=== PATIENT | male | born 1990 | race American Indian/Alaskan Native ===

== ENCOUNTER 2020-10-21 14:17 | Emergency (ER) | payer SELFPAY ==
[2020-10-21 14:59] VITALS: BP 128/80
[2020-10-21] MEDS ORDERED: SODIUM CHLORIDE 0.9% 1000 ML 1,000 ML IV ONE (19:10)
[2020-10-21] MEDS ORDERED: MORPHINE 4 MG/1 ML INJ IV ONE (19:10)
[2020-10-21] MEDS ORDERED: VANCOMYCIN/NS 1 GM/250 ML 1 GM/250 ML BAG IV ONE (19:13)
[2020-10-21] MEDS ORDERED: cefTRIAXone/NS 1 GM/50 ML 1 GM/50 ML BAG IV ONE (19:13)
--- NOTE | 2020-10-21 19:27 | XRay Report ---
Right fingers 3 views INDICATION: Right finger pain and swelling IMPRESSION: Prominent swelling along the distal aspect of the index finger. No underlying osteomyelit is identified. No fracture or subluxation. Signer Name: Shiraz Wilder MD Signed: 10/21/2020 7:22 PM Workstation Name: [id number]
[2020-10-21 20:07] LABS: BUN/Creatinine Ratio 9; Blood Urea Nitrogen 7 mg/dL (9-20); Calcium 9.1 mg/dL (8.4-10.2); Hemolysis Index 23
[2020-10-21 20:18] LABS: Basophils # (Auto) 0.1 K/mm3 (0.0-0.1); Basophils % (Auto) 0.7 % (0.0-1.8); Eosinophils % (Auto) 0.5 % (0.0-4.3); Hematocrit 44.5 % (35.5-45.6); Lymphocytes # (Auto) 2.3 K/mm3 (1.2-5.4); Lymphocytes % (Auto) 26.2 % (13.4-35.0); Mean Corpuscular HGB Conc 34 % (32-34); Mean Corpuscular Volume 92 fl (84-94); Monocytes # (Auto) 0.8 K/mm3 (0.0-0.8); Monocytes % (Auto) 9.1 % (0.0-7.3); Platelet Count 387 K/mm3 (140-440); Red Blood Count 4.84 M/mm3 (3.65-5.03); Red Cell Distribution Width 13.6 % (13.2-15.2)
--- NOTE | 2020-10-21 22:12 | Emergency Department Report ---
<CARMELLA CRUMP S - Last Filed: 10/21/20 22:37> ED Upper Extremity Inj HPI - General Chief Complaint: Extremity Injury, Upper Stated Complaint: SWOLLEN FINGER Time Seen by Provider: 10/21/20 18:18 - Related Data Previous Rx's Medication Instructions Recorded Last Taken Type Amoxicillin [Trimox CAP] 500 mg PO BID #20 capsule 10/09/19 Unknown Rx Ibuprofen [Motrin] 800 mg PO Q8HR PRN #30 tablet 10/09/19 Unknown Rx Acetaminophen/Codeine [Tylenol 1 tab PO Q6H PRN #12 tab 10/21/20 Unknown Rx /Codeine # 3 tab] cephALEXin [Keflex] 500 mg PO Q6HR #28 capsule 10/21/20 Unknown Rx Allergies Allergy/AdvReac Type Severity Reaction Status Date / Time No Known Allergies Allergy Unverified 10/09/19 18:28 ED Past Medical Hx - Medications Home Medications: Home Medications Medication Instructions Recorded Confirmed Last Taken Type Amoxicillin [Trimox CAP] 500 mg PO BID #20 capsule 10/09/19 Unknown Rx Ibuprofen [Motrin] 800 mg PO Q8HR PRN #30 tablet 10/09/19 Unknown Rx Acetaminophen/Codeine [Tylenol 1 tab PO Q6H PRN #12 tab 10/21/20 Unknown Rx /Codeine # 3 tab] cephALEXin [Keflex] 500 mg PO Q6HR #28 capsule 10/21/20 Unknown Rx ED Medical Decision Making - Lab Data Result diagrams: 10/21/20 19:28 10/21/20 19:28 - Medical Decision Making I saw this patient in conjunction with NOEL Lowery. Patient appears to have a large paronychia that has also caused some cellulitic changes to the finger. It does not appear consistent with flexor tenosynovitis as the patient does not have any pain with passive extension, does not have significant pain along the flexor tendon, and does not appear stuck in flexion. X-ray did not show any signs of osteomyelitis. Labs have been unremarkable including CBC and metabolic panel. Orthopedist was contacted by Sebastián who agrees with the plan for I&D and outpatient follow-up. ED Disposition Clinical Impression: Paronychia of left index finger, Encounter for incision and drainage procedure Disposition: TO HOME OR SELFCARE Condition: Stable Instructions: Paronychia, [id number] Additional Instructions: Follow-up with a orthopedic doctor in 2 days or if symptoms worsen and continue return to emergency room as soon as possible. Prescriptions: cephALEXin [Keflex] 500 mg PO Q6HR #28 capsule Acetaminophen/Codeine [Tylenol /Codeine # 3 tab] 1 tab PO Q6H PRN #12 tab PRN Reason: Pain , Severe (7-10) Referrals: PRIMARY CARE, [Primary Care Provider] - 3-5 Days ANGELA OSBORNE MD [Staff Physician] - 10/23/20 <SEBASTIÁN RIZZO - Last Filed: 10/21/20 23:10> ED Upper Extremity Inj HPI - General Source: patient Mode of arrival: Ambulatory Limitations: No Limitations - History of Present Illness Initial Comments: This is a 30-year-old male nontoxic, well nourished in appearance, no acute signs of distress presents to the ED with c/o of redness and pain and swelling to left index finger x several days. Patient denies any pus or drainage. Denies any trauma or injuries. Patient denies any fever, chills, nausea, vomiting, chest pain, shortness of breath, headache or stiff neck. Patient denies any allergies or significant past medical history. Complaint: Injury to:: left, finger -: days(s) Other Extremity Injury: Fingers: Right Other Injuries: none Severity scale (0 -10): 8 Improves With: immobilization Worsens With: movement of extremity Associated Symptoms: denies other symptoms. denies: weakness, numbness, neck pain, suspects foreign body, nausea/vomiting, heard/felt popping sensat ED Review of Systems ROS: Stated complaint: SWOLLEN FINGER Other details as noted in HPI Comment: All other systems reviewed and negative Constitutional: fever. denies: chills Eyes: denies: eye pain, eye discharge, vision change ENT: denies: ear pain, throat pain Respiratory: denies: cough, shortness of breath, wheezing Cardiovascular: denies: chest pain, palpitations Endocrine: no symptoms reported Gastrointestinal: denies: abdominal pain, nausea, diarrhea Genitourinary: denies: urgency, dysuria Musculoskeletal: denies: back pain, joint swelling, arthralgia Skin: denies: rash, lesions Neurological: denies: headache, weakness, paresthesias Psychiatric: denies: anxiety, depression Hematological/Lymphatic: denies: easy bleeding, easy bruising ED Past Medical Hx - Past Medical History Previous Medical History?: No - Surgical History Past Surgical History?: No - Social History Smoking Status: Never Smoker Substance Use Type: Alcohol ED Physical Exam - General Limitations: No Limitations General appearance: alert, in no apparent distress - Head Head exam: Present: atraumatic, normocephalic - Eye Eye exam: Present: normal appearance - Neck Neck exam: Present: normal inspection, full ROM. Absent: lymphadenopathy - Respiratory Respiratory exam: Absent: respiratory distress - Cardiovascular Cardiovascular Exam: Present: regular rate - Extremities Exam Extremities exam: Present: full ROM, tenderness, normal capillary refill. Absent: joint swelling - Expanded Upper Extremity Exam Right General: Present: normal inspection Shoulder Exam: Present: normal inspection, full ROM. Absent: tenderness, swelling Upper Arm exam: Present: normal inspection, full ROM. Absent: tenderness, swelling Elbow exam: Present: normal inspection, full ROM. Absent: tenderness, swelling Forearm Wrist exam: Present: normal inspection, full ROM. Absent: tenderness, swelling Hand Wrist exam: Present: full ROM, tenderness, swelling. Absent: abrasion, laceration, ecchymosis, deformity, crepidus, dislocation, erythema, amputation, nail avulsion, subungual hematoma Vascular: Present: normal capillary refill. Absent: vascular compromise (Neurovascular within normal limits) - Back Exam Back exam: Present: normal inspection, full ROM - Neurological Exam Neurological exam: Present: alert, oriented X3, normal gait - Psychiatric Psychiatric exam: Present: normal affect, normal mood - Skin Skin exam: Present: warm, dry, intact, normal color. Absent: rash ED Course Vital Signs 10/21/20 10/21/20 14:58 22:30 Temperature 100.2 F H 99.3 F Pulse Rate 89 59 L Respiratory 18 16 Rate Blood Pressure 128/80 O2 Sat by Pulse 99 98 Oximetry - Reevaluation(s) Reevaluation #1: 10/21/20 22:20 Patient is speaking in full sentences with no signs of distress noted. - Consultations Consultation #1: 10/21/20 22:20 Patient has been consulted with Jahaira Salazar about patient history, physical exam, and labs/'imaging results and examined patient and agrees to ED plan of care and discharge plan of care. Consultation #2: 10/21/20 22:20 Patient has been consulted with Dr. Osborne (orthopedic) about patient history, physical exam, and labs/imaging results and send images of finger and still has a paronychia arm and needs to be lanced and discharged with follow-up in 3 to 5 days. ED Medical Decision Making - Lab Data Result diagrams: 10/21/20 19:28 10/21/20 19:28 Lab Results 10/21/20 10/21/20 10/21/20 Range/Units 19:28 19:28 19:28 WBC 8.9 (4.5-11.0) K/mm3 RBC 4.84 (3.65-5.03) M/mm3 Hgb 15.0 (11.8-15.2) gm/dl Hct 44.5 (35.5-45.6) % MCV 92 (84-94) fl MCH 31 (28-32) pg MCHC 34 (32-34) % RDW 13.6 (13.2-15.2) % Plt Count 387 (140-440) K/mm3 Lymph % (Auto) 26.2 (13.4-35.0) % [place] % (Auto) 9.1 H (0.0-7.3) % Eos % (Auto) 0.5 (0.0-4.3) % Baso % (Auto) 0.7 (0.0-1.8) % Lymph # (Auto) 2.3 (1.2-5.4) K/mm3 [place] # (Auto) 0.8 (0.0-0.8) K/mm3 Eos # (Auto) 0.0 (0.0-0.4) K/mm3 Baso # (Auto) 0.1 (0.0-0.1) K/mm3 Seg Neutrophils % 63.5 (40.0-70.0) % Seg Neutrophils # 5.6 (1.8-7.7) K/mm3 Sodium 139 (137-145) mmol/L Potassium 3.5 L (3.6-5.0) mmol/L Chloride 101.1 (98-107) mmol/L Carbon Dioxide 31 H (22-30) mmol/L Anion Gap 10 mmol/L BUN 7 L (9-20) mg/dL Creatinine 0.8 (0.8-1.3) mg/dL Estimated GFR > 60 ml/min BUN/Creatinine Ratio 9 % Glucose 90 (75-100) mg/dL Lactic Acid 0.50 L (0.7-2.0) mmol/L Calcium 9.1 (8.4-10.2) mg/dL - Radiology Data [facility] [address] [place] [address] XRay Report Signed Patient: JUAN PABLO VOGT MR#: [id number] : 1990 Acct:[id number] Age/Sex: 30 / M ADM Date: 10/21/20 Loc: ED Attending Dr: Ordering Physician: SEBASTIÁN RIZZO NP Date of Service: 10/21/20 Procedure(s): XR finger(s) 2+V RT Accession Number(s): [id number] cc: SEBASTIÁN RIZZO NP Fluoro Time In Minutes: Right fingers 3 views INDICATION: Right finger pain and swelling IMPRESSION: Prominent swelling along the distal aspect of the index finger. No underlying osteomyelitis identified. No fracture or subluxation. Signer Name: Shiraz Wilder MD Signed: 10/21/2020 7:22 PM Workstation Name: [id number] Transcribed By: Dictated By: Shiraz Wilder MD Electronically Authenticated By: Shiraz Wilder MD Signed Date/Time: 10/21/201921 DD/ 21 TD/TT: - Medical Decision Making This is a 30-year-old male that presents with left paronychia. Patient is stable and was examined by me. This is incision and drainage and has been performed and patient tolerated well. A sterile dressing has been applied. Patient was educated on proper wound care. Patient is discharged with Keflex. Patient received IV antibiotics in the ER. Patient was instructed to refer to Fo llow-up with a orthopedic doctor in 2 days or if symptoms worsen and continue return to emergency room as soon as possible. At time of discharge, the patient does not seem toxic or ill in appearance. No acute signs of distress noted. Patient agrees to discharge treatment plan of care. No further questions noted by the patient. - Differential Diagnosis Paronychia, fracture, tenosynovitis, cellulitis, abscess Critical care attestation.: If time is entered above; I have spent that time in minutes in the direct care of this critically ill patient, excluding procedure time. ED Disposition Is pt being admited?: No Does the pt Need Aspirin: No Time of Disposition: 22:27
== END 2020-10-21 23:40 | disposition home or self-care (01) ==
LOC: ED 14:17
DX: L03.012 Cellulitis of left finger (principal)
CPT/HCPCS: 10060; 36415; 73140; 80048; 82140; 85025; 87040; 96365; 96367; 96375; 99283; J0696; J2270; J3370; J7030